=== PATIENT | female | born 1985 | race Hispanic/Latino ===

== ENCOUNTER 2019-02-07 09:48 | Inpatient (IN) | payer BC ==
[2019-02-07 09:57] VITALS: BMI 33.3
--- NOTE | 2019-02-07 10:04 | OBADHP ---
Datetime: 02/07/2019 09:59 Admit Comment, IP Provider: Patient for admission for induction, @ 41 wks. Patient has no antep artum issues, no medical problems, no surgeries, no allergies. Denies VB, leaking, +FM, no ctxns VE=closed/thick/high FHR = TOCO = no ctxns A/P 1. Admit patient to unit, IVF, CBC, type and screen 2. Reg diet for now 3. CEFM and TOCO 4. WIll start with Cytotec 50mg PO [id number] Pelvic Type - PN: Adequate Extremities - PN: Normal Abdomen - PN: Normal Back - PN: Normal Breast - PN: Normal Lungs - PN: Normal Heart - PN: Normal Thyroid - PN: Normal Neurologic - PN: Normal HEENT - PN: Normal General - PN: Normal Vital Signs Provider: Reviewed; Within Normal Limits Genitourinary Exam: Normal DTRs - PN: Normal IP Adm Impression: Term, intrauterine IP Admit Plan: Admit to unit; Initiate labor induction protocol
[2019-02-07] MEDS: Lactated Ringer's 1,000 ML IV SCH ×4 (10:45→22:00)
[2019-02-07 15:56] LABS: BASO % 0.4 % (0.0-2.0); HEMOGLOBIN 10.7 g/dL (12.0-16.0); LYMPH % 18.4 % (20.0-40.0); MEAN CELL VOLUME 82.8 fl (81.0-99.0); MEAN CORPUSCULAR HEMOGLOBIN 26.4 pg (27.0-31.0); MEAN CORPUSCULAR HGB CONC 31.9 g/dL (33.0-37.0); MEAN PLATELET VOLUME 10.1 fl (7.2-11.7); MONO # 0.6 K/uL (0.0-0.8); MONO % 10.8 % (0.0-10.0); NEUT # 3.8 K/uL (1.8-7.0); NEUT % 70.4 % (50.0-75.0); NRBC % 0.1 % (0.0-0.0); RBC 4.05 Mil/uL (3.80-5.20); RED CELL DISTRIBUTION WIDTH 14.2 % (11.5-14.5); WHITE BLOOD COUNT 5.4 K/uL (4.8-10.8)
[2019-02-07] MEDS ORDERED: Lactated Ringer's 1,000 ML IV SCH ×2 (18:42→18:51)
--- NOTE | 2019-02-07 20:13 | OBPN ---
Datetime: 02/07/2019 20:06 IP Progress Impression: Normal progression of labor IP Informed Consent Obtain: Vaginal Delivery IP Procedures: Sterile Vag Exam IP Progress Plan: Continue present management Membranes, Provider: Ruptured FHR - Baseline A Provider: 125 IP Progress Note Comment: Patient evaluated, feeling increased pain with contractions. Requesting Ni trous Oxide VE= 4/80/-2 FHR = 125 mod, +accels, no decels TOCO = ctxning q 2-5 mins A/P 1. Patient progressing in labor, now 4cm 2. Patient would like nitrous for pain 3. Discussed with patient at next check if little or no change on cervical exam, may order Pitocin for augmentation 4. CEFM and TOCO Vital Signs Provider: Reviewed; Within Normal Limits NICHD Accel Fetus A IP Provider: [id number] NICHD Variability Prov Fetus A: Moderate 6-25bpm Dilatation, Provider: 4 Effacement, Provider: 80 Station, Provider: -2 NICHD Decel Fetus A IP Provider: None Datetime: 02/07/2019 09:59 Contraction Comments Provider: q 6mins
[2019-02-07] MEDS ORDERED: Fentanyl/Bupivacaine HCl 250 ML EPI ONE (21:48)
[2019-02-07] MEDS: Oxytocin 30 UNIT in NS 500 ml 30 UNITS/500 ML BAG IV ONE (22:50)
--- NOTE | 2019-02-07 23:29 | OBPN ---
Datetime: 02/07/2019 23:25 IP Progress Impression: Non-reassuring heart rate IP Informed Consent Obtain: Vaginal Delivery IP Procedures: Sterile Vag Exam Membranes, Provider: Ruptured Contraction Comments Provider: q 2 mins FHR - Baseline A Provider: 150 IP Progress Note Comment: Patient evaluated, patient had FHR = 150 with mod tutu, +accels, prolonged deceleration for almost 3 mins with return to baseline and <50% late decelerations. Patient placed on left then right lateral position, O2mask, Pitocin was held. FHR has come back to baseline of 150 mod tutu, Discussed with patient would like to watch FHR recovery, may need to give Terbutaline to facili curran reprofusion. Will continue to monitor Vital Signs Provider: Reviewed; Within Normal Limits NICHD Accel Fetus A IP Provider: [id number] NICHD Variability Prov Fetus A: Moderate 6-25bpm Dilatation, Provider: 5 Effacement, Provider: 80 Station, Provider: -1 NICHD Decel Fetus A IP Provider: Late; Prolonged
[2019-02-08] MEDS: Oxytocin 30 UNIT in NS 500 ml 30 UNITS/500 ML BAG IV ONE (00:30)
[2019-02-08] MEDS ORDERED: Oxytocin 30 UNIT in NS 500 ml 30 UNITS/500 ML BAG IV ONE ×3 (04:00→14:45)
[2019-02-08] MEDS: Lactated Ringer's 1,000 ML IV SCH ×5 (06:50→18:40)
--- NOTE | 2019-02-08 10:57 | OBPN ---
Datetime: 02/08/2019 10:51 IP Progress Impression Other: Induction for post-dates IP Procedures: Sterile Vag Exam IP Progress Plan: Induction Membranes, Provider: Ruptured Amniotic Fluid Color, Provider: Clear FHR - Baseline A Provider: 120's IP Progress Note Comment: 33 yo G1 at 41+4 wks fr induction for post-dates, on pitocin VE unchanged from 0515 Will increase pitocin and recheck in a few hours Discussed the possibility of ceasean delivery w/ pt and her if she remains unchanged Vital Signs Provider: Reviewed NICHD Accel Fetus A IP Provider: 15X15 FHR Category Provider Fetus A: Category I NICHD Variability Prov Fetus A: Moderate 6-25bpm Dilatation, Provider: 6 Effacement, Provider: 80 Station, Provider: -2
[2019-02-08] MEDS ORDERED: OXYTOCIN/0.9 % NS 20 UNIT/1,000 ML BAG IV SCH (14:45)
[2019-02-08] MEDS ORDERED: ePHEDrine 50 mg/ml Inj ONE (14:53)
[2019-02-08] MEDS ORDERED: Bupivacaine HCl 0.5% PF (30 ml) Inj ONE ×2 (14:55)
[2019-02-08] MEDS ORDERED: Morphine 5 mg/10 ml preservative-free Inj(Duramorph) ONE (14:55)
[2019-02-08] MEDS ORDERED: ceFAZolin 2 GM in Sodium Chloride 0.9% 100 ML IVPB ONE (15:00)
--- NOTE | 2019-02-08 15:09 | OBPN ---
Datetime: 02/08/2019 15:00 IP Progress Impression: Arrest of dilatation/descent IP Informed Consent Obtain: Section Delivery; Risks, Benefits and Alternatives Discussed IP Procedures: Sterile Vag Exam Membranes, Provider: Intact Contraction Comments Provider: Q3-4 FHR - Baseline A Provider: 120's IP Progress Note Comment: 33 yo G1 at 41+4 wks w/ arrest of dilation at 6 cm since 0515. Discussed dx w/ pt and her family Consents for procedure and for possible transfusion NICHD Accel Fetus A IP Provider: 15X15 FHR Category Provider Fetus A: Category I NICHD Variability Prov Fetus A: Moderate 6-25bpm Dilatation, Provider: 6 Effacement, Provider: 80 Station, Provider: -2 NICHD Decel Fetus A IP Provider: None
[2019-02-08] MEDS ORDERED: Lidocaine 2% PF (10 ml) Amp ONE (15:43)
[2019-02-08] MEDS ORDERED: Oxycodone/Acetaminophen 5/325 mg Tab PO PRN ×5 (16:36→19:57)
--- NOTE | 2019-02-08 16:53 | OBDS ---
DELIVERY PERSONNEL Delivery Doctor: Dank Du MD Scrub Nurse: Rosie Paulino Checking Clerk: heather del valle rnc / lori yusuf rnc Anesthesiologist: Ayush Brown MD MATERNAL INFORMATION Medications in Delivery: 30 units pitocin 500 cc ns after placenta / ancef 2 grams preop Placenta Cultured: No Maternal Complications: Other Other Maternal Complications: ftp failure to descent Provider Comments: Pre-op dx: 33 yo G1 at 41+4 wks w/ arrest of dilation at 6 cm Post-op dx: Same Procedure: Primary low transverse section Surgeon: Florian Assistants: Drs. Lucy Tompkins, OB fellow and Alva Boo, PGY-1 Anesthesia: Epidural Anesthesiologist: Dr. Brown Findings: Viable female infant delivered in OP position through clear fluid at 1545, Apgars 9 and 9. Wt 8#11, 3945 gms. Nl appearinfg uterus, tubes, and ovaries appeared plump. Complications: None EBL: 900 mL LABOR SUMMARY EDC: 01/28/2019 00:00 No. Babies in Womb: 1 Attempted: No Labor Anesthesia: Epidural LABOR INFORMATION Reason for Induction: Other Reason for Induction Other: pt is 41+ weeks Onset of Labor: 02/08/2019 04:00 Cervical Ripening Agents: Cytotec @ (Annotations: 50 mcg po as ordered by ) Other Ripening Agents: pitocin Oxytocin: Induction Group B Beta Strep: Negative (Annotations: 01/04/19) Antibiotics # of Doses: ancef 2 grams as preop at 15:07 Antibiotics Time of Last Dose: 15:07 preop Steroids Given: None Reason Steroids Not Administered: Not Applicable MEMBRANES Membranes Rupture Method: Spontaneous Rupture of Membranes: 02/07/2019 17:05 Length of Rupture (hrs): 21.67 Amniotic Fluid Color: Clear Amniotic Fluid Amount: Small Amniotic Fluid Odor: Normal STAGES OF LABOR Stage 3 hrs: 0 Stage 3 min: 1 Total Time in Labor hrs: 11 Total Time in Labor min: 46 VAGINAL DELIVERY Episiotomy: None Laceration Extension: N/A Laceration Type: None CSECTION DELIVERY Primary Indication: Arrest of Descent Secondary Indication: Failure of Descent/ ftp CSection Urgency: Non Elective CSection Incidence: Primary Labor: Labor Elective: Nonelective CSection Incision: Lower Uterine Transverse BABY A INFORMATION Infant Delivery Date/Time: 02/08/2019 15:45 Method of Delivery: Born in Route : Yes : N/A Forceps: N/A Vacuum Extraction: N/A Shoulder Dystocia : No SHOULDER DYSTOCIA BABY A Delivery Date/Time: 02/08/2019 15:45 PRESENTATION/POSITION BABY A Presentation: Cephalic Cephalic Presentation: Vertex Breech Presentation: N/A PLACENTA INFORMATION BABY A Placenta Delivery Time : 02/08/2019 15:46 Placenta Method of Delivery: Spontaneous Placenta Status: Delivered SCORES BABY A Heart Rate 1 min: >100 bpm Resp Effort 1 min: Good Cry Reflex Irritability 1 min: Cough or Sneeze or Pulls Away Muscle Tone 1 min: Active Motion Color 1 min: Body [place], Extremities Blue Resuscitation Effort 1 min: Tactile Stimulation SCORE 1 MIN: 9 Heart Rate 5 min: >100 bpm Resp Effort 5 min: Good Cry Reflex Irritability 5 min: Cough or Sneeze or Pulls Away Muscle Tone 5 min: Active Motion Color 5 min: Body [place], Extremities Blue SCORE 5 MIN: 9 Heart Rate 10 min: >100 bpm Resp Effort 10 min: Good Cry Reflex Irritability 10 min: Cough or Sneeze or Pulls Away Muscle Tone 10 min: Active Motion Color 10 min: Completely [place] SCORE 10 MIN: 10 INFANT INFORMATION BABY A Gestational Age at Delivery: 41+4 Gestational Status: Term Infant Outcome : Liveborn Condition : Stable Sex: Female IDENTIFICATION/MEDS BABY A ID Band Number: [id number] ID Band Location: Left Leg; Left Arm WEIGHT/LENGTH BABY A Birthweight (gms): 3945 Weight (lb): 8 Weight (oz): 11 Length Inches: 20" CORD INFORMATION BABY A No. Cord Vessels: 3 Nuchal Cord : N/A Nuchal Cord Other: none True Knot: none Infant Cord pH Baby Arterial: no Cord pH Baby Venous: no Cord Blood Taken: Yes Banking/Donate Info: no Suction: None ASSESSMENT BABY A Complications: None Physical Findings at Delivery: Within Normal Limits Infant Respirations: Appears Normal Choir Singer/ALS Called : Yes Care By: dr camacho ricardo Transferred To: Remains with Mother
[2019-02-08] MEDS ORDERED: DiphenhydrAMINE 50 mg/ml Inj IVP PRN ×2 (16:54→19:57)
[2019-02-08] MEDS ORDERED: Naloxone 0.4 mg/ml Inj (Adult) IVP PRN ×2 (16:54→19:57)
[2019-02-08] MEDS ORDERED: Lactated Ringer's 1,000 ML IV SCH (19:57)
[2019-02-08] MEDS: Simethicone 80 mg Chewtab PO SCH (21:40)
[2019-02-08] MEDS ORDERED: Simethicone 80 mg Chewtab PO SCH (22:00)
--- NOTE | 2019-02-09 01:19 | OP ---
PROCEDURE DATE: 02/08/2019 PREOPERATIVE DIAGNOSIS: This is a 33-year-old G1 at 41 weeks and 4 days with arrest of dilation at 6 cm. POSTOPERATIVE DIAGNOSIS: This is a 33-year-old G1 at 41 weeks and 4 days with arrest of dilation at 6 cm. PROCEDURE: Primary low-transverse section. SURGEON: Stanton Du MD ASSISTANTS: Drs. Lucy Tompkins, OB fellow and Alva Boo, PGY-1 ANESTHESIA: Epidural. ANESTHESIOLOGIST: Grabiel Brown MD FINDINGS: Viable female delivered in OP position through clear fluid at 1545. 's 9 and 9 at one and five minutes respectively. The weight was 8 pounds 11 ounces or 3945 g. Normal-appearing uterus and tubes, and the ovaries appeared plump. COMPLICATIONS: None. ESTIMATED BLOOD LOSS: 900 mL. DESCRIPTION OF PROCEDURE: The patient was taken to the operating room, where the epidural anesthesia was bolused. The time-out was done. Graham was already in place. She was then prepped and draped in a normal sterile fashion in the dorsal supine position with a leftward tilt. A Pfannenstiel skin incision was then made with a scalpel and carried through to the underlying layer of fascia with the Bovie. The fascia was incised in the midline. The incision was extended laterally with Dunbar scissors. The inferior aspect of the fascial incision was then grasped with Nitish clamps, elevated, and the underlying rectus muscles dissected off bluntly with the Dunbar scissors. Attention was then turned to the superior aspect of this incision, which in a similar fashion was grasped, tented up with Nitish clamps and the rectus muscles dissected off bluntly and with the Dunbar scissors. The rectus muscles were then in the midline and the peritoneum was entered digitally. The peritoneal incision was then extended superiorly and inferiorly with good visualization of the bladder. The bladder blade was then inserted and the vesicouterine peritoneum was identified, grasped with the pickups and entered sharply with the Metzenbaum scissors. The incision was then extended laterally and the bladder flap was created digitally. The bladder blade was then re-inserted and the lower uterine segment was incised in transverse fashion with a scalpel. The uterine incision was then extended laterally with the bandage scissors. The bladder blade was removed and the infant's head delivered atraumatically. The cord was clamped and cut. The was handed off to the awaiting inside horticultural specialty grower. Cord blood was collected. The placenta was then delivered as the uterus was massaged. The uterus was then exteriorized and cleared of all clots and debris with a dry sponge curettage. The uterine incision was then repaired with 0 Vicryl in a running lock fashion. A second layer of the same suture was used in an imbricating fashion for hemostasis and to reinforce the incision. There were a few additional stitches of 0 Vicryl placed below the incision for hemostasis. The abdomen was then well irrigated. The uterus was then returned to the abdomen. The gutters were cleared of all clots. The uterine incision was re-examined and found to be hemostatic. The peritoneum was then closed with 2-0 chromic. The rectus muscles were re-approximated with a running stitch of 0 chromic. The fascia was re-approximated with 0 Vicryl in a running fashion. The space of the subcutaneous fat was closed with a running stitch of 2-0 plain gut. The skin was then closed with subcuticular stitch of 4-0 Monocryl. The patient tolerated the procedure well. Sponge, lap and needle counts were correct. The patient received 2 g of Ancef prior to the procedure. The patient was taken to the recovery room in stable condition. Stanton Du MD KELECHI
[2019-02-09] MEDS: Simethicone 80 mg Chewtab PO SCH ×4 (04:07→22:22)
[2019-02-09 05:48] LABS: MEAN CELL VOLUME 82.3 fl (81.0-99.0); MEAN CORPUSCULAR HEMOGLOBIN 27.1 pg (27.0-31.0); MEAN CORPUSCULAR HGB CONC 32.9 g/dL (33.0-37.0); RBC 3.18 Mil/uL (3.80-5.20); RED CELL DISTRIBUTION WIDTH 14.2 % (11.5-14.5); WHITE BLOOD COUNT 15.3 K/uL (4.8-10.8)
[2019-02-09 05:55] LABS: HEMOGLOBIN 8.6 g/dL (12.0-16.0)
[2019-02-09] MEDS ORDERED: Multivitamin With Minerals Tab PO SCH (09:00)
[2019-02-09] MEDS ORDERED: Patient's Own Med (Pnv With Ca,No.72/Iron/Fa [Pnv Prenatal Plus Multivit Tab] 1 TAB) PO SCH (09:00)
[2019-02-09] MEDS: Multivitamin With Minerals Tab PO SCH (09:18)
--- NOTE | 2019-02-09 10:16 | OBPPN ---
Datetime: 02/09/2019 10:10 PP Pain Prov: Within normal limits PP Nausea Prov: Denies PP Flatus Prov: Yes PP Breasts Prov: Normal PP Heart Prov: Normal PP Lungs Prov: Normal PP Abdomen/Uterus Prov: Normal PP Lochia Prov: Normal PP Vulva/Perineum Prov: Normal PP CVA Tenderness Prov: Normal PP Extremities Prov: Normal PP Comments Phys Exam Prov: Fundus firm under umbilicus Incision clean/dry/intact PP Impression Prov: Normal progression PP Plan Prov: Continue present management PP Progress Note Prov: Patient denies CP, no SOB, no N/V, tolerating PO diet, ambulating/voiding wel l, mild lochia, abdominal pain tolerable with meds, +flatus A/P POD #1 1. Continue post op orders 2. Percocet/Motrin prn pain 3. Encourage ambulation/ IP PP Procedures: None Vital Signs Provider PP: Reviewed; Within Normal Limits
[2019-02-10] MEDS: Simethicone 80 mg Chewtab PO SCH ×5 (05:14→21:35)
[2019-02-10] MEDS: Multivitamin With Minerals Tab PO SCH (09:35)
--- NOTE | 2019-02-10 22:48 | OBPPN ---
Datetime: 02/10/2019 09:43 PP Pain Prov: Within normal limits PP Nausea Prov: Denies PP Flatus Prov: No PP BM Prov: No PP Heart Prov: Normal PP Lungs Prov: Normal PP Abdomen/Uterus Prov: Normal PP Lochia Prov: Normal PP Extremities Prov: Normal PP C/S Incision Prov: Normal PP Progress Prov: Normal PP Comments Phys Exam Prov: GEN: Lying in bed NAD HEENT: NCAT CARD: RRR + S1S2 RESP: CTA, no wheezing, rales or rhonchi GI: + BS, appropraite tenderness to palpation, Fundus firm below umbilicus Incision: Healing well no discharge or bleeding, steri strips intact EXT: no edema, no calf tenderness, PP Impression Prov: Normal progression PP Plan Prov: Continue present management PP Progress Note Prov: S: Pt is a 33yo delivered female via C section on 02/08/19 POD 2, Seen and examined at bedside this AM. Patient had an uneventful overnight. Pt reports mild pelvic brock n controlled with pain meds. Ambulating well without dizziness. Breast feeding exclusively without di fficulty. Tolerating PO diet. Lochia is similar to menses volume. Voiding freely, -BM, - Flatus. Den ies fever, chills, headache, blurry vision, SOB, chest pain, N/V, diarrhea,constipation, or dysuria. O: T97.9 BP 128/86 HR 87 PHYSICAL EXAM: GEN: Resting comfortably in bed, NAD HEENT: NCAT LUNGS: CTA B/L, no wheezing, rhonchi, or rales CVS: RRR, S1, S2, no m/r/g ABD: ND, +BS, firm fundus below UB. Soft, appropriate TTP Incistion: Well healing incision, no discharge or active bleeding, steri strips clean and dry EXT: No edema, calves nontender A/P: Pt is a 33yo delivered female infant via C section on 02/08/19 POD 2. Continue with current management OOB with caution Encouraged Continue vitamin Ibuprofen 600 mg 1 tab q/ 6 hrs po if mild pain. 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 Pt reports will make appts Case reviewed and discussed with Dr. Kalyan Smith PGY1 OB Hospitalist on-call Pt seen on rounds. agree with PGY1 note WHITNEYNDO IP PP Procedures: None Vital Signs Provider PP: Reviewed; Within Normal Limits
[2019-02-11] MEDS: Simethicone 80 mg Chewtab PO SCH ×3 (04:23→16:21)
[2019-02-11] MEDS: Multivitamin With Minerals Tab PO SCH (09:08)
--- NOTE | 2019-02-11 11:36 | OBPPN ---
Datetime: 02/11/2019 11:32 PP Pain Prov: Within normal limits PP Nausea Prov: Denies PP Flatus Prov: Yes PP Breasts Prov: Not Done PP Heart Prov: Normal PP Lungs Prov: Normal PP Abdomen/Uterus Prov: Normal PP Lochia Prov: Not Done PP Vulva/Perineum Prov: Not Done PP CVA Tenderness Prov: Normal PP Extremities Prov: Normal PP C/S Incision Prov: Normal PP Impression Prov: Normal progression PP Plan Prov: Discharge PP Progress Note Prov: Doing well without complaints ambulating tolerating diet pain well controlled Vital signs stable afebrile Uterus firm below the umbilicus Incision clean dry intact No Homans Postop day #3 Patient cleared for discharge Follow-up with No heavy lifting, nothing per vagina, prescription provided Vital Signs Provider PP: Reviewed
--- NOTE | 2019-02-11 11:36 | OBDCSUM ---
Datetime: 02/11/2019 11:33 Discharged to, Provider: Home Follow up at, Provider: Yenni Molina Instr Activity: Normal activity Disch Instr Diet: Regular Discharge Instructions, Provider: Routine instructions given Discharge Diagnosis, Provider: Term Delivered Follow up in weeks, Provider: 1 week Disch Referrals: None Contraception discussed, Prov: Yes Disch Activity Restrictions: Nothing in vagina - [place], tampons, douche Discharge Comment, Provider: Patient cleared for discharge Contraception after Delivery: Undecided
[2019-02-11 21:38] VITALS: BP 136/57; PULSE 80; RESP 20; TEMP 98.3; O2SAT 99
== END 2019-02-11 17:20 | disposition home or self-care (01) | DRG 788 ==
LOC: H.L&D 09:57 → H.OB/GYN 02-08 19:57
PROVIDERS: ADMIT Obstetrics & Gynecology; ATTEND Obstetrics & Gynecology
PROC: 10D00Z1 Extraction of Products of Conception, Low, Open Approach (ICD-10-PCS; principal; 2019-02-08)
DX: O48.0 Post-term pregnancy (principal); O76 Abnormality in fetal heart rate and rhythm complicating labor and delivery; O62.1 Secondary uterine inertia; O62.0 Primary inadequate contractions; Z37.0 Single live birth; Z3A.41 41 weeks gestation of pregnancy

== ENCOUNTER 2019-02-22 15:10 | Emergency (ER) | payer BC ==
[2019-02-22 15:10] VITALS: BMI 33.3
[2019-02-22] MEDS ORDERED: Iohexol 240 (50 ml) PO ONE (16:17)
[2019-02-22] MEDS ORDERED: Iohexol 240 (50 ml) ONE (16:27)
[2019-02-22 16:43] LABS: BASO % 0.5 % (0.0-2.0); EOS % 0.4 % (0.0-4.0); HEMOGLOBIN 11.2 g/dL (12.0-16.0); LYMPH # 1.2 K/uL (1.0-4.3); LYMPH % 15.1 % (20.0-40.0); MEAN CELL VOLUME 80.9 fl (81.0-99.0); MEAN CORPUSCULAR HEMOGLOBIN 26.1 pg (27.0-31.0); MEAN CORPUSCULAR HGB CONC 32.3 g/dL (33.0-37.0); MEAN PLATELET VOLUME 8.6 fl (7.2-11.7); MONO # 0.5 K/uL (0.0-0.8); MONO % 6.7 % (0.0-10.0); NEUT # 6.2 K/uL (1.8-7.0); NEUT % 77.3 % (50.0-75.0); RBC 4.28 Mil/uL (3.80-5.20); RED CELL DISTRIBUTION WIDTH 15.9 % (11.5-14.5)
[2019-02-22 16:53] LABS: ALB/GLOB RATIO 1.2 (1.0-2.1); ALBUMIN 3.6 g/dL (3.5-5.0); ALT/SGPT 25 U/L (9-52); AST/SGOT 22 U/L (14-36); BLOOD UREA NITROGEN 10 mg/dl (7-17); CALCIUM 9.1 mg/dL (8.4-10.2); GFR NON-AFRICAN AMERICAN > 60
[2019-02-22 16:54] LABS: SQUAMOUS EPITHIAL 2 /hpf (0-5); URINE BACTERIA OCC (<OCC); URINE BILIRUBIN NEGATIVE (NEGATIVE); URINE BLOOD SMALL (NEGATIVE); URINE CLARITY CLOUDY (Clear); URINE COLOR YELLOW (YELLOW); URINE GLUCOSE (UA) NEG (NEGATIVE); URINE LEUKOCYTE ESTERASE MOD Leu/uL (Negative); URINE PROTEIN NEGATIVE (NEGATIVE); URINE UROBILINOGEN 0.2-1.0 mg/dL (0.2-1.0)
--- NOTE | 2019-02-22 17:33 | ED PDOC ---
HPI: Abdomen Time Seen by Provider: 02/22/19 16:08 Chief Complaint (Nursing): Abdominal Pain Chief Complaint (Provider): Abdominal Pain History Per: Patient History/Exam Limitations: no limitations Onset/Duration Of Symptoms: Days (x1) Current Symptoms Are (Timing): Still Present Additional Complaint(s): 33 year old female, status post Cesarian surgery, presents to the emergency department with 1 day of worsening abdominal pain. Patient states, initially, she felt gas-like pressure so she took gas-X and other [id number] medication for relief. She reports symptoms persisted and has not had a bowel movement in 2 days. PCP: none provided [facility] INSTALLER: Dr. Christina Hyman Past Medical History Reviewed: Historical Data, Nursing Documentation, Vital Signs Vital Signs: Last Vital Signs Temp 98.5 F 02/22/19 15:33 Pulse 69 02/22/19 15:33 Resp 16 02/22/19 15:33 BP 111/65 02/22/19 15:33 Pulse Ox 98 02/22/19 15:33 - Medical History PMH: Denies: Depression, Diabetes, HTN - Surgical History Surgical History: - Family History Family History: States: Unknown Family Hx - Home Medications Home Medications: Ambulatory Orders Medication Instructions Recorded Pnv with Ca,No.72/Iron/FA [Pnv 1 tab DAILY 02/07/19 Plus Multivit Tab] - Allergies Allergies/Adverse Reactions: Allergies Allergy/AdvReac Type Severity Reaction Status Date / Time No Known Allergies Allergy Verified 02/22/19 15:32 Review of Systems ROS Statement: Except As Marked, All Systems Reviewed And Found Negative Gastrointestinal: Positive for: Abdominal Pain (diffusely), Constipation Physical Exam - Reviewed Nursing Documentation Reviewed: Yes Vital Signs Reviewed: Yes - Physical Exam Appears: Positive for: No Acute Distress, Uncomfortable Head Exam: Positive for: ATRAUMATIC, NORMAL INSPECTION, NORMOCEPHALIC Skin: Positive for: Normal Color Eye Exam: Positive for: Normal appearance ENT: Positive for: Normal ENT Inspection Neck: Positive for: Normal Cardiovascular/Chest: Positive for: Regular Rate, Rhythm. Negative for: Murmur Respiratory: Positive for: Normal Breath Sounds. Negative for: Respiratory Dist ress Gastrointestinal/Abdominal: Positive for: Soft, Tenderness (diffusely), Other (well-healing cesarian scar without erythema or drainage) Back: Positive for: Normal Inspection. Negative for: L CVA Tenderness, R CVA Tenderness Extremity: Positive for: Normal ROM (upper/lower) Neurological/Psych: Positive for: Awake, Alert, Normal Tone. Negative for: Motor/Sensory Deficits - Laboratory Results Result Diagrams: 02/22/19 16:35 02/22/19 16:35 Lab Results: Total Bilirubin 0.4 mg/dl (0.2-1.3) 02/22/19 16:35 AST 22 U/L (14-36) 02/22/19 16:35 ALT 25 U/L (9-52) 02/22/19 16:35 Alkaline Phosphatase 84 U/L (38-126) 02/22/19 16:35 Total Protein 6.4 G/DL (6.3-8.2) 02/22/19 16:35 Albumin 3.6 g/dL (3.5-5.0) 02/22/19 16:35 Globulin 2.9 gm/dL (2.2-3.9) 02/22/19 16:35 Albumin/Globulin Ratio 1.2 (1.0-2.1) 02/22/19 16:35 Urine Color Yellow (YELLOW) 02/22/19 16:35 Urine Clarity Cloudy (Clear) 02/22/19 16:35 Urine pH 7.0 (5.0-8.0) 02/22/19 16:35 Ur Specific [place] 1.017 (1.003-1.030) 02/22/19 16:35 Urine Protein Negative mg/dL (NEGATIVE) 02/22/19 16:35 Urine Glucose (UA) Neg mg/dL (NEGATIVE) 02/22/19 16:35 Urine Ketones Negative mg/dL (NEGATIVE) 02/22/19 16:35 Urine Blood Small (NEGATIVE) 02/22/19 16:35 Urine Nitrate Negative (NEGATIVE) 02/22/19 16:35 Urine Bilirubin Negative (NEGATIVE) 02/22/19 16:35 Urine Urobilinogen 0.2-1.0 mg/dL (0.2-1.0) 02/22/19 16:35 Ur Leukocyte Esterase Mod Liz/uL (Negative) 02/22/19 16:35 Urine RBC (Auto) 4 /hpf (0-3) H 02/22/19 16:35 Urine Microscopic WBC 5 /hpf (0-5) 02/22/19 16:35 Ur Squamous Epith Cells 2 /hpf (0-5) 02/22/19 16:35 Urine Bacteria Occ (<OCC) H 02/22/19 16:35 - ECG O2 Sat by Pulse Oximetry: 98 (RA) Pulse Ox Interpretation: Normal Medical Decision Making Medical Decision Making: Time: 161 Initial Plan: work-up for diffuse severe abdominal pain status post Cesarian surgery. Rule out underlying infectious process or obstruction. * CT ABD/pelvis * Labs with UA * Omnipaque 240 50ml PO * Re-assessment Time: 1934 --CT ABD/pelvis FINDINGS: LUNG BASES: The lung bases appear clear. No pleural effusions are seen. LIVER: Unremarkable. GALLBLADDER AND BILE DUCTS: The gallbladder appears within normal limits. No radioopaque gallstones are seen. No biliary ductal dilatation is evident. PANCREAS: Unremarkable. SPLEEN: Unremarkable. ADRENAL GLANDS: Unremarkable. KIDNEYS, URETERS, AND BLADDER: The kidneys appear within normal limits. There is no hydronephrosis or hydroureter. No urinary calculi are seen. STOMACH AND BOWEL: Unremarkable appearance of the stomach and bowel. No evidence of bowel obstruction. No evidence suggesting enteritis or colitis. A moderate amount of fecal material seen within the colon. APPENDIX: No evidence of acute appendicitis on CT examination. LYMPH NODES: No lymphadenopathy is evident. REPRODUCTIVE: The uterus appears enlarged and heterogeneous in attenuation particularly the central portion of the uterus and the possibility of hematoma or even retained products of conception within the endometrial cavity are not excluded. There is some prominence to both of the ovaries which also appear heterogeneous in attenuation. Small amount of free fluid suggested within the cul-de-sac. VASCULATURE: No evidence of abdominal aortic aneurysm. BONES: No aggressive appearing osseous lesion. No acute osseous pathology evident. IMPRESSION: No suspicious mass or lymphadenopathy. Uterus moderately enlarged and heterogeneous in attenuation particularly in the central portion raising the possibility of a hematoma retained products of conception. Prominent ovaries bilaterally. Small amount of free fluid within the cul-de-sac. Moderate amount of fecal material seen within the colon. Correlation with ultrasound of the pelvis and gynecologic consultation advised. Time: 2021 --Case and results discussed with Dr. Culver, [employer] senior operations analyst. Based on normal findings from work-up, Dr. Culver recommends Motrin and Tylenol for pain control and arrange followup with [facility] in office for 02/24/19. Upon provider reevaluation, patient is medically stable, report improvement, and requires no further treatment in the ED at this time. Patient is agreeable to plan and will be discharged home. Counseling was provided and all questions were answered regarding. There is agreement to discharge plan. Return if symptoms persist or worsen. Clinical Impression: Abdominal pain in female Scribe Attestation: Documented by Violeta Vee, acting as a scribe for Marlen Bashir MD. Provider Scribe Attestation: All medical record entries made by the Scribe were at my direction and personally dictated by me. I have reviewed the chart and agree that the record accurately reflects my personal performance of the history, physical exam, medical decision making, and the department course for this patient. I have also personally directed, reviewed, and agree with the discharge instructions and disposition. Disposition - Clinical Impression Clinical Impression: Abdominal pain in female - Patient ED Disposition Is Patient to be Admitted: No Counseled Patient/Family Regarding: Studies Performed, Diagnosis, Need For Follo wup - Disposition [facility] Christina Hyman MD [Staff Provider] - Disposition: Routine/Home Disposition Time: 02:22 Condition: IMPROVED Additional Instructions: Follow up with the commissioned security officer on Saturday. Take Motrin or Tylenol for pain. Take stool softeners as needed for constipation. Return to the emergency department if you develop fever, worsened pain, or other new symptoms. Instructions: Acute Abdomen (Belly Pain), Adult (DC) Forms: [employer] (Algerian) Print Language: ECUADOREAN
[2019-02-22] MEDS ORDERED: Iohexol 300 100 ML IJ ONE (18:33)
[2019-02-22] MEDS ORDERED: Sodium Chloride 0.9% 50 ML IV ONE (18:33)
[2019-02-22 20:49] VITALS: BP 109/64; PULSE 72; RESP 15; TEMP 98.4; O2SAT 99
--- NOTE | 2019-02-23 10:07 | CT ---
Date of service: 02/22/2019 PROCEDURE: CT Abdomen and Pelvis with contrast HISTORY: diffuse abd pain s/p COMPARISON: None. TECHNIQUE: Contrast dose: 90 mL Omnipaque 300 Radiation dose: Total exam DLP = 536.83 mGy-cm. This CT exam was performed using one or more of the following dose reduction techniques: Automated exposure control, adjustment of the mA and/or kV according to patient size, and/or use of iterative reconstruction technique. FINDINGS: LOWER THORAX: Unremarkable. LIVER: Unremarkable. No gross lesion or ductal dilatation. GALLBLADDER AND BILE DUCTS: Unremarkable. PANCREAS: Unremarkable. No gross lesion or ductal dilatation. SPLEEN: Unremarkable. ADRENALS: Unremarkable. No mass. KIDNEYS AND URETERS: Unremarkable. No hydronephrosis. No solid mass. VASCULATURE: Unremarkable. No aortic aneurysm. No aortic atherosclerotic calcification or mural plaque present. BOWEL: Unremarkable. No obstruction. No gross mural thickening. APPENDIX: Not identified. No secondary findings. PERITONEUM: Unremarkable. No free fluid. No free air. LYMPH NODES: Unremarkable. No enlarged lymph nodes. BLADDER: Unremarkable. REPRODUCTIVE: Uterus somewhat enlarged consistent with recent section. Trace endometrial fluid appreciated. defect seen in lower anterior uterine body. The right ovary is somewhat enlarged compared to the left ovary. Correlate with transvaginal pelvic ultrasound. Rule out ovarian torsion. BONES: No acute fracture. OTHER FINDINGS: None. IMPRESSION: Status post . Mildly enlarged right ovary. Rule out ovarian torsion in light of current history. Correlate with transvaginal pelvic ultrasound. The preliminary findings for this examination were reported by [facility] at 7:35 p.m. on 02/22/2019. There is concurrence of this report with the preliminary findings.
== END 2019-02-22 20:49 | disposition home or self-care (01) ==
LOC: H.ER 15:10
DX: R10.9 Unspecified abdominal pain (principal); G89.18 Other acute postprocedural pain
CPT/HCPCS: 74177; 80053; 81003; 81025; 85025; 99283; Q9966; Q9967